=== PATIENT | male | born 1955 | race Caucasian/White ===

== ENCOUNTER 2016-11-27 13:57 | Emergency (ER) | payer MEDICAID ==
[~2016-11-27] VITALS: Ht 180.3 cm; Wt 89.0 kg
[~2016-11-27 13:57] MED LIST: ASPI-496 PO; ASPI-614 PO; BENA20TA2 PO; BENA20TA61 PO; CLON1TAB23 PO; CLOP75TA PO; CLOP75TA22 PO; CYCL-259 PO; ESOM40CA PO; FLUT1DIS IH; HYDR12.58 PO; HYDR25SU21 PR; HYDR25TA6 PO; IBUP800T PO; LOSA1TAB17 PO; METO-93 PO; METO50TA82 PO; MIRT45TA PO; SIMV20TA3 PO; SIMV40TA3 PO; TADA5TAB2 PO; TRAZ100T15 PO; TRAZ50TA18 PO; ZOLP-413 PO
[2016-11-27] MEDS ORDERED: MIRT7.5T8 PO (14:15)
[2016-11-27] MEDS ORDERED: ONDA4TAB10 PO (14:15)
[2016-11-27] MEDS ORDERED: RIFA200T3 PO (14:15)
[2016-11-27] MEDS ORDERED: METH5TAB2 PO (14:15)
[2016-11-27] MEDS ORDERED: METO25TA35 PO (14:15)
[2016-11-27] MEDS ORDERED: RISP0.253 PO (14:15)
[2016-11-27] MEDS ORDERED: SODIUM CHLORIDE FLUSH 10ML SYR IVF ONE (14:30)
[2016-11-27] MEDS ORDERED: SODIUM CHLORIDE 0.9% 1,000ML IVBOLUS ONE ×2 (14:30→16:00)
[2016-11-27] MEDS ORDERED: ONDANSETRON 2MG/ML, 2ML IVPush ONE (14:30)
[2016-11-27] MEDS ORDERED: ONDANSETRON 2MG/ML, 2ML ONE (14:56)
[2016-11-27 15:13] LABS: BLOOD UREA NITROGEN 34 mg/dL (7-18)
[2016-11-27 15:21] LABS: ASPARTATE AMINO TRANSFERASE 144 U/L (15-37)
[2016-11-27 15:28] LABS: ACETAMINOPHEN < 2 mcg/mL (10-30); IS PT STATUS REG ER OR PRE ER? YES
[2016-11-27 15:41] VITALS: BP 141/52
[2016-11-27 16:26] LABS: DAU SCREEN DISCLAIMER
[2016-11-27 16:33] LABS: PATH.CAST-FLAG NOT PRESENT; SPERM-FLAG NOT PRESENT; SRC-FLAG NOT PRESENT; XTAL-FLAG NOT PRESENT; YLC-FLAG NOT PRESENT
== END 2016-11-27 18:25 | disposition home or self-care (01) ==
LOC: ED 14:12
DX: F15.10 Other stimulant abuse, uncomplicated (principal); E86.0 Dehydration; I12.9 Hypertensive chronic kidney disease with stage 1 through stage 4 chronic kidney disease, or unspecified chronic kidney disease; N18.9 Chronic kidney disease, unspecified; I25.2 Old myocardial infarction; F11.10 Opioid abuse, uncomplicated
CPT/HCPCS: 36415; 70450; 80053; 80307; 80329; 81001; 82010; 82140; 82800; 83605; 84443; 84484; 85025; 85610; 85730; 93005; 96361; 96374; 99285; J2405; J7030; G0480

== ENCOUNTER 2017-03-01 22:05 | Inpatient (IN) | payer MEDICAID ==
[~2017-03-01] VITALS: Ht 180.3 cm; Wt 88.8 kg
[~2017-03-01 22:05] MED LIST changes: +METH5TAB2 PO; +METO25TA35 PO; +MIRT7.5T8 PO; +ONDA4TAB10 PO; +RIFA200T3 PO; +RISP0.253 PO
[2017-03-01] MEDS ORDERED: NALOXONE 0.4 MG/ML, 1ML ONE (22:14)
[2017-03-01] MEDS ORDERED: NALOXONE 0.4 MG/ML, 1ML IVPush ONE (22:30)
[2017-03-01] MEDS ORDERED: SODIUM CHLORIDE FLUSH 10ML SYR IVF ONE ×2 (22:30→23:30)
[2017-03-01] MEDS ORDERED: METO50TA82 PO (22:45)
[2017-03-01 23:01] LABS: BLOOD UREA NITROGEN 37 mg/dL (7-18)
[2017-03-01] MEDS ORDERED: SODIUM CHLORIDE 0.9% 1,000ML IVBOLUS ONE (23:30)
[2017-03-02] MEDS ORDERED: LOSA25TA5 PO (01:18)
[2017-03-02] MEDS ORDERED: CLON0.1T PO (01:18)
[2017-03-02] MEDS ORDERED: RISP0.253 PO (01:18)
[2017-03-02] MEDS ORDERED: SODIUM CHLORIDE 0.9% 1,000 ML IV ONE (01:39)
[2017-03-02] MEDS ORDERED: ACETAMINOPHEN 325 MG TABLET PO PRN (02:00)
[2017-03-02] MEDS ORDERED: ONDANSETRON 2MG/ML, 2ML IVPush PRN ×2 (02:00)
[2017-03-02] MEDS: HEPARIN 5,000 UNITS/ML, 1ML SQ SCH ×3 (04:03→18:15)
[2017-03-02] MEDS: SODIUM CHLORIDE 0.9% 1,000 ML IV SCH ×3 (04:03→17:29)
[2017-03-02 04:47] VITALS: BP 119/61
[2017-03-02 08:00] VITALS: BP 91/56
[2017-03-02] MEDS ORDERED: METOPROLOL TARTRATE 50 MG TABLET PO SCH (09:00)
[2017-03-02 11:20] LABS: BLOOD UREA NITROGEN 30 mg/dL (7-18)
[2017-03-02 14:30] VITALS: BP 119/70
[2017-03-02] MEDS: HYDROcodone/APAP 5/325 TABLET PO PRN (17:28)
[2017-03-02 18:42] VITALS: BP 117/65
[2017-03-03] MEDS: SODIUM CHLORIDE 0.9% 1,000 ML IV SCH ×2 (00:19→06:28)
[2017-03-03] MEDS: HEPARIN 5,000 UNITS/ML, 1ML SQ SCH ×3 (01:27→17:51)
[2017-03-03 01:45] VITALS: BP 124/60
[2017-03-03 06:03] LABS: BLOOD UREA NITROGEN 26 mg/dL (7-18)
[2017-03-03 08:00] VITALS: BP 106/61
[2017-03-03] MEDS: METHADONE 5 MG TABLET PO SCH ×2 (11:54→17:50)
[2017-03-03 14:38] VITALS: BP 110/68
[2017-03-03 18:41] VITALS: BP 146/79
[2017-03-03] MEDS: HYDROcodone/APAP 5/325 TABLET PO PRN (21:15)
[2017-03-03] MEDS: TRAZODONE 50MG TABLET PO PRN (21:45)
[2017-03-04] MEDS: METHADONE 5 MG TABLET PO SCH ×5 (00:01→23:31)
[2017-03-04 00:10] VITALS: BP 129/74
[2017-03-04] MEDS: LACTULOSE 10 GM/15 ML UDC PO SCH ×3 (00:45→20:03)
[2017-03-04] MEDS: NICOTINE 14MG/24 HR PATCH.TD24 TD SCH ×2 (00:45→23:31)
[2017-03-04] MEDS ORDERED: SODIUM CHLORIDE 0.9% 1,000 ML IV SCH (01:53)
[2017-03-04] MEDS ORDERED: IPRATROPIUM 0.5 MG/2.5 ML INHA ONE (02:30)
[2017-03-04] MEDS: HYDROcodone/APAP 5/325 TABLET PO PRN ×2 (06:01→20:03)
[2017-03-04] MEDS: HEPARIN 5,000 UNITS/ML, 1ML SQ SCH ×3 (06:01→20:03)
[2017-03-04 08:21] VITALS: BP 137/83
[2017-03-04 13:08] LABS: BLOOD UREA NITROGEN 15 mg/dL (7-18)
[2017-03-04 18:55] VITALS: BP 167/81
[2017-03-04] MEDS: TRAZODONE 50MG TABLET PO PRN (20:03)
[2017-03-05 01:04] VITALS: BP 164/83
[2017-03-05] MEDS: HYDROcodone/APAP 5/325 TABLET PO PRN ×2 (02:01→20:14)
[2017-03-05] MEDS: HEPARIN 5,000 UNITS/ML, 1ML SQ SCH ×3 (05:52→20:15)
[2017-03-05] MEDS: METHADONE 5 MG TABLET PO SCH ×4 (05:53→23:48)
[2017-03-05 08:30] VITALS: BP 155/89
[2017-03-05] MEDS: LACTULOSE 10 GM/15 ML UDC PO SCH ×2 (09:00→20:15)
[2017-03-05] MEDS ORDERED: LOSARTAN 50MG TABLET PO SCH (09:00)
[2017-03-05] MEDS ORDERED: hydrALAzine 20 MG/ML, 1ML IV PRN (14:00)
[2017-03-05 14:30] VITALS: BP 153/77
[2017-03-05] MEDS ORDERED: ONDANSETRON ODT 4 MG PO PRN (14:30)
[2017-03-05] MEDS ORDERED: PROMETHAZINE 12.5 MG SUPP PR PRN (14:30)
[2017-03-05] MEDS ORDERED: RIFA550T PO (14:57)
[2017-03-05 20:07] VITALS: BP 160/77
[2017-03-05] MEDS: TRAZODONE 50MG TABLET PO PRN (20:14)
[2017-03-05] MEDS: LOSARTAN 50MG TABLET PO SCH (20:15)
[2017-03-05] MEDS: NICOTINE 14MG/24 HR PATCH.TD24 TD SCH (23:47)
[2017-03-06 00:27] VITALS: BP 168/89
[2017-03-06] MEDS: HYDROcodone/APAP 5/325 TABLET PO PRN (02:26)
[2017-03-06] MEDS: METHADONE 5 MG TABLET PO SCH ×2 (06:11→11:21)
[2017-03-06] MEDS: HEPARIN 5,000 UNITS/ML, 1ML SQ SCH (06:12)
[2017-03-06 07:14] VITALS: BP 157/81
[2017-03-06] MEDS: LACTULOSE 10 GM/15 ML UDC PO SCH (08:19)
[2017-03-06] MEDS: LOSARTAN 50MG TABLET PO SCH (08:20)
== END 2017-03-06 13:25 | disposition home or self-care (01) | DRG 917 ==
LOC: ED 23:59 → EDIP 03-02 01:39 → SUATTDRO 03-02 01:53 → 4WST 03-02 03:03
PROVIDERS: ADMIT Internal Medicine; ATTEND Internal Medicine
DX: T40.3X2A Poisoning by methadone, intentional self-harm, initial encounter (principal); G92 Toxic encephalopathy; J96.21 Acute and chronic respiratory failure with hypoxia; N17.0 Acute kidney failure with tubular necrosis; E44.1 Mild protein-calorie malnutrition; E87.1 Hypo-osmolality and hyponatremia; F11.20 Opioid dependence, uncomplicated; I10 Essential (primary) hypertension; J44.9 Chronic obstructive pulmonary disease, unspecified; F17.210 Nicotine dependence, cigarettes, uncomplicated; I95.9 Hypotension, unspecified; D53.9 Nutritional anemia, unspecified; G89.29 Other chronic pain; E78.5 Hyperlipidemia, unspecified; Z59.0 Homelessness; Z68.27 Body mass index [BMI] 27.0-27.9, adult; Z71.6 Tobacco abuse counseling; Z79.899 Other long term (current) drug therapy
CPT/HCPCS: 36415; 71010; 80048; 80307; 82040; 82607; 82746; 83735; 84100; 84300; 84443; 85025; 93005; 96361; 96374; J1644; J2310; J7030

== ENCOUNTER 2018-06-25 18:24 | Emergency (ER) | payer MEDICAID ==
[~2018-06-25] VITALS: Ht 180.3 cm; Wt 78.5 kg
[~2018-06-25 18:24] MED LIST changes: -BENA20TA2 PO; +BENA20TA4 PO; +CLON0.1T PO; -CLOP75TA22 PO; +CLOP75TA52 PO; +IBUP-1223 PO; -IBUP800T PO; -LOSA1TAB17 PO; +LOSA1TAB22 PO; +LOSA25TA6 PO; -RIFA200T3 PO; +RIFA200T5 PO; +RIFA550T4 PO; +TRAZ-136 PO; +TRAZ-137 PO; -TRAZ100T15 PO; -TRAZ50TA18 PO
[2018-06-25 19:01] LABS: BASOPHILS # (AUTO) 0.01 x10^3/uL (0-0.1); BASOPHILS % (AUTO) 0 % (0-1); EOSINOPHILS % (AUTO) 0 % (1-7); LYMPHOCYTES # (AUTO) 0.44 x10^3/uL (1-3.4); LYMPHOCYTES % (AUTO) 4 % (22-44); MD NO; MEAN CORPUSCULAR HEMOGLOBIN 33.6 pg (27.5-34.5); MEAN CORPUSCULAR HGB CONC 34.3 g/dL (33.2-36.2); MEAN PLATELET VOLUME 8.6 fL (7.4-10.4); MONOCYTES # (AUTO) 0.69 x10^3/uL (0.2-0.8); MONOCYTES % (AUTO) 6 % (2-9); NEUTROPHILS # (AUTO) 9.65 x10^3/uL (1.8-6.8); NEUTROPHILS % (AUTO) 89 % (42-75); PLATELET COUNT 151 x10^3/uL (130-400); RED BLOOD COUNT 4.13 x10^6/uL (4.38-5.82); RED CELL DISTRIBUTION WIDTH 14.2 % (9.4-14.8)
[2018-06-25 19:05] LABS: ALBUMIN 4.4 g/dL (3.4-5.0); ANION GAP 15 mmol/L (5-15); CALCIUM 9.2 mg/dL (8.5-10.1); CHLORIDE 108 mmol/L (98-107); CREATININE 2.67 mg/dL (0.7-1.3)
[2018-06-25 19:13] LABS: ALANINE AMINOTRANSFERASE 88 U/L (12-78); ALKALINE PHOSPHATASE 172 U/L (45-117); TOTAL PROTEIN 8.5 g/dL (6.4-8.2)
[2018-06-25] MEDS ORDERED: SODIUM CHLORIDE 0.9% 1,000ML IVBOLUS ONE (19:30)
[2018-06-25 20:44] VITALS: BP 118/76
== END 2018-06-25 21:51 | disposition home or self-care (01) ==
LOC: ED 21:45
DX: K59.00 Constipation, unspecified (principal); I12.9 Hypertensive chronic kidney disease with stage 1 through stage 4 chronic kidney disease, or unspecified chronic kidney disease; N18.9 Chronic kidney disease, unspecified; I25.2 Old myocardial infarction; F17.200 Nicotine dependence, unspecified, uncomplicated; Z85.038 Personal history of other malignant neoplasm of large intestine
CPT/HCPCS: 36415; 74176; 76700; 80053; 82140; 83690; 85025; 96360; 99285; J7030

== ENCOUNTER 2018-06-26 00:27 | Emergency (ER) | payer MEDICAID ==
[~2018-06-26] VITALS: Ht 172.7 cm; Wt 70.0 kg
[2018-06-26 00:33] VITALS: BP 146/95
== END 2018-06-26 00:54 ==
LOC: ED 00:52
DX: F10.10 Alcohol abuse, uncomplicated (principal); Z53.21 Procedure and treatment not carried out due to patient leaving prior to being seen by health care provider

== ENCOUNTER 2018-12-25 14:51 | Emergency (ER) | payer MEDICAID ==
[~2018-12-25] VITALS: Ht 180.3 cm; Wt 76.0 kg
[~2018-12-25 14:51] MED LIST changes: -BENA20TA4 PO; +BENA20TA54 PO; -CLON0.1T PO; +CLON0.1T22 PO; -HYDR12.58 PO; +HYDROCHLOROTH12.5 MG PO; +LOSA25TA25 PO; -LOSA25TA6 PO; -TRAZ-136 PO; +TRAZ50TA66 PO
[2018-12-25 14:57] VITALS: BP 140/81
[2018-12-25] MEDS ORDERED: LIDOCAINE-MPF 1%, 5ML INFIL ONE (15:00)
[2018-12-25] MEDS ORDERED: LIDOCAINE-MPF 1%, 5ML ONE (15:02)
[2018-12-25] MEDS ORDERED: DIPH,PERTUSS(ACELL),TET VAC/PF 0.5 ML IM-VACC ONE ×2 (15:23→15:30)
[2018-12-25] MEDS ORDERED: BACITRACIN ZINC OINT 500U/GM, 0.9 GM ONE (16:01)
== END 2018-12-25 16:08 | disposition home or self-care (01) ==
LOC: ED 16:02
DX: S61.412A Laceration without foreign body of left hand, initial encounter (principal); I10 Essential (primary) hypertension; I25.2 Old myocardial infarction; F17.200 Nicotine dependence, unspecified, uncomplicated; W01.0XXA Fall on same level from slipping, tripping and stumbling without subsequent striking against object, initial encounter; Y93.89 Activity, other specified; Y92.89 Other specified places as the place of occurrence of the external cause; Y99.8 Other external cause status
CPT/HCPCS: 12002; 90471; 90715

== ENCOUNTER 2019-01-22 10:50 | Emergency (ER) | payer MEDICAID ==
[~2019-01-22] VITALS: Ht 180.3 cm; Wt 75.6 kg
[2019-01-22 10:58] VITALS: BP 137/79
--- NOTE | 2019-01-22 11:09 | NUR ---
PT'S HERE FOR SUTURE REMOVAL TO LEFT PALM FROM >1 MONTH AGO. NO ANY OTHER SYMPTOMS. PT'S AOX4. RESPS EVEN AND UNLABORED.
[2019-01-22] MEDS ORDERED: BACITRACIN ZINC OINT 500U/GM, 0.9 GM ONE (11:12)
--- NOTE | 2019-01-22 11:21 | NUR ---
PT GIVEN DC INSTRUCTIONS. PT AMB TO DC WITH STEADY GAIT. NO ACUTE DISTRESS AT DC.
== END 2019-01-22 11:22 | disposition home or self-care (01) ==
LOC: ED 11:20
DX: S61.412D Laceration without foreign body of left hand, subsequent encounter (principal); I10 Essential (primary) hypertension; F17.200 Nicotine dependence, unspecified, uncomplicated; X58.XXXD Exposure to other specified factors, subsequent encounter
CPT/HCPCS: 99283

== ENCOUNTER 2019-02-08 12:32 | Inpatient (IN) | payer MEDICAID ==
[~2019-02-08] VITALS: Ht 180.3 cm; Wt 78.0 kg
--- NOTE | 2019-02-08 13:01 | NUR ---
pt to room from the lobby in a wheelchair. supplemntal o2 provided via nc. changed into a gown, and is awaiting an MD to assess.
--- NOTE | 2019-02-08 13:14 | NUR ---
raleigh (rn) is assuming care of this pt at this time. sbar report was exchanged at the bedside.
--- NOTE | 2019-02-08 13:15 | NUR ---
REPORT FROM JADEN MAI, ASSUME CARE OF PT AT THIS TIME. PT RESTING IN ROOM, NAD, AWAITING LAB RESULTS.
[2019-02-08] MEDS ORDERED: RIFAXIMIN 550 MG TABLET PO ONE (13:30)
[2019-02-08 13:37] LABS: BASOPHILS # (AUTO) 0.02 x10^3/uL (0-0.1); BASOPHILS % (AUTO) 0 % (0-1); EOSINOPHILS # (AUTO) 0.12 x10^3/uL (0-0.4); EOSINOPHILS % (AUTO) 2 % (1-7); LYMPHOCYTES # (AUTO) 0.76 x10^3/uL (1-3.4); LYMPHOCYTES % (AUTO) 12 % (22-44); MD NO; MEAN CORPUSCULAR HEMOGLOBIN 32.1 pg (27.5-34.5); MEAN CORPUSCULAR HGB CONC 32.9 g/dL (33.2-36.2); MEAN CORPUSCULAR VOLUME 97.6 fL (81-97); MEAN PLATELET VOLUME 8.6 fL (7.4-10.4); MONOCYTES # (AUTO) 0.46 x10^3/uL (0.2-0.8); MONOCYTES % (AUTO) 7 % (2-9); NEUTROPHILS # (AUTO) 4.94 x10^3/uL (1.8-6.8); NEUTROPHILS % (AUTO) 78 % (42-75); PLATELET COUNT 130 x10^3/uL (130-400); RED BLOOD COUNT 3.81 x10^6/uL (4.38-5.82); RED CELL DISTRIBUTION WIDTH 13.7 % (9.4-14.8)
[2019-02-08 13:45] LABS: ALANINE AMINOTRANSFERASE 18 U/L (12-78); ALBUMIN 3.4 g/dL (3.4-5.0); ANION GAP 9 mmol/L (5-15); CALCIUM 8.3 mg/dL (8.5-10.1); CHLORIDE 103 mmol/L (98-107); CREATININE 2.92 mg/dL (0.7-1.3)
[2019-02-08 13:47] LABS: ALKALINE PHOSPHATASE 108 U/L (45-117); BILIRUBIN,TOTAL 0.3 mg/dL (0.2-1.0); TOTAL PROTEIN 7.3 g/dL (6.4-8.2)
[2019-02-08] MEDS ORDERED: SODIUM CHLORIDE 0.9% 1,000ML IVBOLUS ONE (14:00)
[2019-02-08] MEDS ORDERED: CLON1TAB23 PO (14:10)
[2019-02-08] MEDS ORDERED: METH10TA2 PO (14:10)
--- NOTE | 2019-02-08 14:56 | NUR ---
PT BACK FROM CT. IV PLACED, NS BOLUS INFUSING. [facility] IN TO SEE PT.
[2019-02-08] MEDS ORDERED: DOCUSATE 100 MG CAPSULE PO PRN (15:30)
[2019-02-08] MEDS ORDERED: hydrALAzine 20 MG/ML, 1ML IVPush PRN (15:30)
[2019-02-08] MEDS ORDERED: ONDANSETRON ODT 4 MG PO PRN (15:30)
[2019-02-08] MEDS ORDERED: ONDANSETRON 2MG/ML, 2ML IVPush PRN (15:30)
[2019-02-08] MEDS ORDERED: BISACODYL 10 MG SUPP PR PRN (15:30)
[2019-02-08] MEDS ORDERED: ACETAMINOPHEN 325 MG TABLET PO PRN (15:30)
[2019-02-08] MEDS ORDERED: LABETALOL 5MG/ML, 20ML IVPush PRN (15:30)
[2019-02-08] MEDS ORDERED: POLYETHYLENE GLYCOL 17 GM PACKET PO PRN (15:30)
--- NOTE | 2019-02-08 15:46 | NUR ---
REPORT TO CHAIM MAI, PT READY FOR TRANSPORT TO FLOOR
[2019-02-08 16:08] VITALS: BP 127/83
[2019-02-08] MEDS: METHADONE 40 MG TABLET.SOL PO SCH (16:44)
[2019-02-08] MEDS: SODIUM CHLORIDE 0.9% 1,000 ML IV SCH ×2 (16:59→23:42)
[2019-02-08] MEDS: NICOTINE 7 MG/24 HR PATCH.TD24 TD SCH (18:02)
[2019-02-08] MEDS: HEPARIN 5,000 UNITS/ML, 1ML SQ SCH ×2 (18:02→23:30)
[2019-02-08] MEDS: RIFAXIMIN 550 MG TABLET PO SCH (20:59)
[2019-02-08] MEDS: BUDESONIDE 0.5 MG/2 ML INHA NPPB SCH (21:00)
[2019-02-08] MEDS ORDERED: SIMVASTATIN 20 MG TABLET PO SCH (21:00)
[2019-02-08 21:06] VITALS: BP 116/78
[2019-02-08] MEDS: ALBUTEROL SULFATE 2.5 MG/3 ML HHN SCH (21:35)
[2019-02-09 03:04] VITALS: BP 95/63
[2019-02-09 03:29] LABS: MICROSCOPIC NOT IND
[2019-02-09 03:41] LABS: AMPHETAMINE SCREEN, URINE Negative (Negative); BARBITURATE SCREEN, URINE Negative (Negative); BENZODIAZEPINE SCREEN, URINE Negative (Negative); CANNABINOID SCREEN, URINE Negative (Negative); COCAINE SCREEN, URINE Negative (Negative); METHADONE SCREEN, URINE Positive (Negative); OPIATE SCREEN, URINE Positive (Negative)
[2019-02-09 03:53] LABS: CULTURE INDICATED? NO
[2019-02-09 05:17] LABS: BASOPHILS # (AUTO) 0.02 x10^3/uL (0-0.1); BASOPHILS % (AUTO) 1 % (0-1); EOSINOPHILS # (AUTO) 0.34 x10^3/uL (0-0.4); EOSINOPHILS % (AUTO) 8 % (1-7); LYMPHOCYTES # (AUTO) 1.05 x10^3/uL (1-3.4); LYMPHOCYTES % (AUTO) 23 % (22-44); MD NO; MEAN CORPUSCULAR HEMOGLOBIN 32.6 pg (27.5-34.5); MEAN CORPUSCULAR HGB CONC 33.1 g/dL (33.2-36.2); MEAN CORPUSCULAR VOLUME 98.7 fL (81-97); MEAN PLATELET VOLUME 8.5 fL (7.4-10.4); MONOCYTES # (AUTO) 0.41 x10^3/uL (0.2-0.8); MONOCYTES % (AUTO) 9 % (2-9); NEUTROPHILS # (AUTO) 2.72 x10^3/uL (1.8-6.8); NEUTROPHILS % (AUTO) 60 % (42-75); PLATELET COUNT 116 x10^3/uL (130-400); RED BLOOD COUNT 3.47 x10^6/uL (4.38-5.82); RED CELL DISTRIBUTION WIDTH 13.7 % (9.4-14.8)
[2019-02-09 05:27] LABS: ALBUMIN 2.6 g/dL (3.4-5.0); ANION GAP 5 mmol/L (5-15); CALCIUM 7.7 mg/dL (8.5-10.1); CHLORIDE 111 mmol/L (98-107)
[2019-02-09 05:41] LABS: ALANINE AMINOTRANSFERASE 16 U/L (12-78); ALKALINE PHOSPHATASE 88 U/L (45-117); BILIRUBIN,TOTAL 0.4 mg/dL (0.2-1.0); CREATININE 1.78 mg/dL (0.7-1.3); THYROID STIMULATING HORMONE 0.455 mIU/L (0.358-3.740); TOTAL PROTEIN 5.8 g/dL (6.4-8.2)
[2019-02-09] MEDS ORDERED: ASPIRIN 81 MG TABLET EC PO SCH (06:00)
[2019-02-09] MEDS: SODIUM CHLORIDE 0.9% 1,000 ML IV SCH (07:10)
[2019-02-09] MEDS: BUDESONIDE 0.5 MG/2 ML INHA NPPB SCH (07:50)
[2019-02-09] MEDS: ALBUTEROL SULFATE 2.5 MG/3 ML HHN SCH (07:50)
[2019-02-09 08:00] VITALS: BP 98/57
[2019-02-09] MEDS: RIFAXIMIN 550 MG TABLET PO SCH (08:29)
[2019-02-09] MEDS: METHADONE 40 MG TABLET.SOL PO SCH (08:29)
[2019-02-09] MEDS: HEPARIN 5,000 UNITS/ML, 1ML SQ SCH ×2 (08:29→15:30)
[2019-02-09] MEDS ORDERED: ALBUTEROL SULFATE 2.5 MG/3 ML HHN SCH (15:00)
[2019-02-09] MEDS ORDERED: RIFA550T4 PO (15:17)
[2019-02-09 15:42] VITALS: BP 113/69
[2019-02-09] MEDS: NICOTINE 7 MG/24 HR PATCH.TD24 TD SCH (15:43)
== END 2019-02-09 17:57 | disposition home or self-care (01) | DRG 682 ==
LOC: ED 13:56 → 3NE 15:14
PROVIDERS: ADMIT Internal Medicine; ATTEND Internal Medicine
DX: N17.9 Acute kidney failure, unspecified (principal); G92 Toxic encephalopathy; F11.20 Opioid dependence, uncomplicated; E86.0 Dehydration; F17.210 Nicotine dependence, cigarettes, uncomplicated; F22 Delusional disorders; F32.9 Major depressive disorder, single episode, unspecified; J44.9 Chronic obstructive pulmonary disease, unspecified; K59.09 Other constipation; K74.60 Unspecified cirrhosis of liver; N18.9 Chronic kidney disease, unspecified; G89.29 Other chronic pain; I12.9 Hypertensive chronic kidney disease with stage 1 through stage 4 chronic kidney disease, or unspecified chronic kidney disease; I25.10 Atherosclerotic heart disease of native coronary artery without angina pectoris; I25.2 Old myocardial infarction; Z79.899 Other long term (current) drug therapy; Z82.49 Family history of ischemic heart disease and other diseases of the circulatory system; Z85.038 Personal history of other malignant neoplasm of large intestine; Z95.5 Presence of coronary angioplasty implant and graft
CPT/HCPCS: 36415; 99285; J7613; J7626; 70450; 80053; 80307; 81003; 82140; 83690; 83735; 84100; 84443; 85025; 94640; G0378; J1644; J7030

== ENCOUNTER 2019-02-15 13:36 | Emergency (ER) | payer MEDICAID ==
[~2019-02-15] VITALS: Ht 180.3 cm; Wt 77.8 kg
[~2019-02-15 13:36] MED LIST changes: +METH10TA2 PO
--- NOTE | 2019-02-15 13:45 | NUR ---
PATIENT PRESENTS TO ED TODAY FOR ABD PAIN, PATIENT REPORTS HAVING AN "ABSCESS IN MY STOMACH AFTER USING HEROIN", LAST USE 02/13/19. 78% RA UPON ARRIVAL TO ROOM 19. SUPPLEMENTAL O2 APPLIED, NOW 93% 3L NC. SHEET LAYER ON PATIENT. HX OF COPD AND COLON CA. DROWSY, A+OX4, RESPONDS APPROPRIATELY TO VOICE, REPORTS TAKING METHADONE, PA STUDENT AT BEDSIDE, AWAITING MD ORDERS, CALL LIGHT WITHIN REACH.
--- NOTE | 2019-02-15 14:47 | NUR ---
Task RN at bedside. vss. Resting w/ eyes closed, denies pain, med rec complete.
--- NOTE | 2019-02-15 15:34 | NUR ---
VS UPDATED IN CHART, FAMILY MEMBER AT BEDSIDE, PATIENT REQUESTING TO LEAVE. MD AWARE. AWAITING FURTHER ORDERS.
--- NOTE | 2019-02-15 15:49 | NUR ---
Madina de oliveira in ED - 02/15/19 at 1551 by BRADY VS UPDATED IN CHART, PATIENT SITTING IN [place] [facility], AWAITING CT RESULTS.
--- NOTE | 2019-02-15 16:02 | NUR ---
Patient/Caregiver given discharge instructions and they have confirmed that they understand the instructions. Patient ambulatory with steady gait to DC desk, family driving patient home for safe DC.
[2019-02-15 16:03] VITALS: BP 105/56
== END 2019-02-15 16:05 | disposition home or self-care (01) ==
LOC: ED 14:46
DX: L02.211 Cutaneous abscess of abdominal wall (principal)
CPT/HCPCS: 99283; 99284

== ENCOUNTER 2019-02-18 06:21 | Emergency (ER) | payer MEDICAID ==
[~2019-02-18] VITALS: Ht 180.3 cm; Wt 78.5 kg
--- NOTE | 2019-02-18 06:49 | NUR ---
BEDSIDE REPORT FROM ELISA RN, PT RESTING IN [facility] ON 2L NC. NO NEEDS AT THIS TIME.
--- NOTE | 2019-02-18 06:50 | NUR ---
report given to nabeel barnes
[2019-02-18 07:09] VITALS: BP 88/51
--- NOTE | 2019-02-18 07:20 | NUR ---
PT BP 88/56, NOTIFIED, NOT ALTERED FROM BASELINE, HR 56, NO S/SXS OF INFECTION. PT STATES HE DOES NOT FEEL DIZZY OR LIGHTHEADED.
== END 2019-02-18 07:23 | disposition home or self-care (01) ==
LOC: ED 07:17
DX: L98.9 Disorder of the skin and subcutaneous tissue, unspecified (principal); L02.211 Cutaneous abscess of abdominal wall; I10 Essential (primary) hypertension; I25.2 Old myocardial infarction; Z85.038 Personal history of other malignant neoplasm of large intestine
CPT/HCPCS: 99281

== ENCOUNTER 2019-03-17 17:50 | Emergency (ER) | payer MEDICAID ==
[~2019-03-17] VITALS: Ht 180.3 cm; Wt 74.9 kg
[2019-03-17 18:56] VITALS: BP 127/80
== END 2019-03-17 18:56 | disposition home or self-care (01) ==
LOC: ED 18:15
DX: F41.1 Generalized anxiety disorder (principal); F11.10 Opioid abuse, uncomplicated; I10 Essential (primary) hypertension; I25.2 Old myocardial infarction; Z72.9 Problem related to lifestyle, unspecified; Z75.9 Unspecified problem related to medical facilities and other health care; Z91.14 Patient's other noncompliance with medication regimen; Z63.8 Other specified problems related to primary support group
CPT/HCPCS: 99284

== ENCOUNTER 2020-03-29 15:16 | Inpatient (IN) | payer MEDICAID ==
[~2020-03-29] VITALS: Ht 180.3 cm; Wt 80.6 kg
[~2020-03-29 15:16] MED LIST changes: +SIMV20TA19 PO; -SIMV20TA3 PO; +SIMV40TA20 PO; -SIMV40TA3 PO; -TRAZ-137 PO; +TRAZ-175 PO
--- NOTE | 2020-03-29 15:56 | NUR ---
PT BIB [facility] AFTER PT WAS FOUND LEANING AGAINST BUILDING BY BYSTANDERS. PER [facility] PT WAS DISORIENTED ON ARRIVAL WITH BP OF 67/52. 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 PT ADMITS TO WALKING AROUND WITH NO WATER FOR ABOUT 30-48 HOURS. PT IS ON METHADONE AND TAKES 60 MG PER DAY. PT ASKING FOR PAIN MEDICATION FOR BACK PAIN.
[2020-03-29] MEDS ORDERED: SODIUM CHLORIDE 0.9% 1,000ML IVBOLUS ONE ×2 (16:00)
[2020-03-29] MEDS ORDERED: SODIUM CHLORIDE FLUSH 10ML SYR IVF ONE (16:00)
[2020-03-29] MEDS ORDERED: METH40TA3 PO (16:11)
--- NOTE | 2020-03-29 16:14 | NUR ---
3RD LITER INFUSED AND PT STILL HAS REFRACTORY LOW BP. DR. HIGGINS AT BEDSIDE.
[2020-03-29 16:17] LABS: BASOPHILS # (AUTO) 0.02 x10^3/uL (0-0.1); BASOPHILS % (AUTO) 0 % (0-1); EOSINOPHILS # (AUTO) 0.28 x10^3/uL (0-0.4); EOSINOPHILS % (AUTO) 5 % (1-7); LYMPHOCYTES # (AUTO) 1.14 x10^3/uL (1-3.4); LYMPHOCYTES % (AUTO) 20 % (22-44); MD NO; MEAN CORPUSCULAR HEMOGLOBIN 32.8 pg (27.5-34.5); MEAN CORPUSCULAR HGB CONC 33.2 g/dL (33.2-36.2); MEAN CORPUSCULAR VOLUME 98.6 fL (81-97); MEAN PLATELET VOLUME 8.8 fL (7.4-10.4); MONOCYTES # (AUTO) 0.46 x10^3/uL (0.2-0.8); MONOCYTES % (AUTO) 8 % (2-9); NEUTROPHILS # (AUTO) 3.74 x10^3/uL (1.8-6.8); NEUTROPHILS % (AUTO) 66 % (42-75); PLATELET COUNT 126 x10^3/uL (130-400); RED BLOOD COUNT 3.71 x10^6/uL (4.38-5.82); RED CELL DISTRIBUTION WIDTH 14.2 % (9.4-14.8)
[2020-03-29 16:20] LABS: INTERNATIONAL NORMALIZED RATIO 1.02 (0.93-1.1); PROTHROMBIN TIME 10.5 Seconds (9.6-11.5)
[2020-03-29 16:22] LABS: ALANINE AMINOTRANSFERASE 19 U/L (12-78); ALBUMIN 3.3 g/dL (3.4-5.0); ANION GAP 9 mmol/L (5-15); CALCIUM 8.1 mg/dL (8.5-10.1); CHLORIDE 113 mmol/L (98-107); CREATININE 2.62 mg/dL (0.7-1.3)
[2020-03-29 16:26] LABS: ALKALINE PHOSPHATASE 107 U/L (45-117); BILIRUBIN,TOTAL 0.4 mg/dL (0.2-1.0); TOTAL PROTEIN 6.7 g/dL (6.4-8.2); TROPONIN I < 0.015 ng/mL (0.000-0.045)
--- NOTE | 2020-03-29 16:54 | NUR ---
PT REFUSED TO HAVE STRAIGHT CATH DONE. PT ABLE TO SPEAK TO ON THE PHONE AND WAS PERSISTENTLY ASKING IF HIS KLONOPIN WAS AT HOME. PT REPORTS IT WAS IN HIS PANT POCKET BUT IS NOT NOW. PT ARRIVED WITH PANTS, LENS MISSING FROM GLASSES, SHOES, CUTTING TABLE OPERATOR FIRST, CIGARETTES, AND SHIRT.
--- NOTE | 2020-03-29 16:58 | NUR ---
LAST BP 85/46. DR. COOPER AWARE. PT TO GET 250 MLS OF NS PER HOUR AFTER 3 LITER BOLUS WAS INFUSED AND MD EVALUATED LAB RESULTS.
[2020-03-29] MEDS ORDERED: SODIUM CHLORIDE 0.9% 1,000 ML IV ONE (17:00)
--- NOTE | 2020-03-29 17:06 | NUR ---
[facility] CALLED PER PT REQUEST TO HAVE THEM SEARCH FOR HIS MISSING GLASS LENSE AND KLONOPIN.
--- NOTE | 2020-03-29 17:14 | NUR ---
MEAL TRAY ORDERED. PK PER DR. COOPER.
[2020-03-29] MEDS: SODIUM CHLORIDE 0.9% 1,000 ML IV SCH ×2 (17:27→22:20)
[2020-03-29] MEDS ORDERED: ONDANSETRON ODT 4 MG PO PRN (17:30)
[2020-03-29] MEDS ORDERED: morphine SULFATE 10 MG/ML, 1ML IVPush PRN (17:30)
[2020-03-29] MEDS ORDERED: BISACODYL 10 MG SUPP PR PRN (17:30)
[2020-03-29] MEDS ORDERED: POLYETHYLENE GLYCOL 17 GM PACKET PO PRN (17:30)
[2020-03-29] MEDS ORDERED: ONDANSETRON 2MG/ML, 2ML IVPush PRN (17:30)
[2020-03-29] MEDS ORDERED: DOCUSATE 100 MG CAPSULE PO PRN (17:30)
[2020-03-29] MEDS ORDERED: ACETAMINOPHEN 325 MG TABLET PO PRN (17:30)
[2020-03-29] MEDS ORDERED: hydrALAzine 20 MG/ML, 1ML IVPush PRN (17:30)
[2020-03-29] MEDS ORDERED: PROMETHAZINE 25 MG/ML, 1ML IM PRN (17:30)
[2020-03-29] MEDS ORDERED: OXYcodone IR 5MG TABLET PO PRN (17:30)
--- NOTE | 2020-03-29 17:35 | NUR ---
PT MOVED TO TRAUMA 4 FOR BP. BP WAS 109/57 AFTER MOVE AND CENTRAL POSTPONED PER DR. COOPER AT BEDSIDE. BP NOW 94/55. REPORT TO GERALD MAI.
[2020-03-29] MEDS ORDERED: NALOXONE 0.4 MG/ML, 1ML ONE (17:38)
--- NOTE | 2020-03-29 17:41 | NUR ---
Assumed care, pt given 0.4mg of narcan IV
--- NOTE | 2020-03-29 17:42 | NUR ---
Pt awake and pt after narcan speaking full sentances and yawning.
--- NOTE | 2020-03-29 17:45 | NUR ---
Pt awake and yelling that he is freezing. Pt very agtitated and sneezing. Pt demanding to be warm. Pt has 3 warm blankets on him with the bear paw heater.
[2020-03-29] MEDS ORDERED: NALOXONE 0.4 MG/ML, 1ML IVPush ONE (18:00)
[2020-03-29 18:17] LABS: FREE T4 (FREE THYROXINE) 0.84 ng/dL (0.76-1.46)
--- NOTE | 2020-03-29 18:28 | NUR ---
rEPORT CALLED TO ILANA MAI
[2020-03-29 21:00] VITALS: BP 94/53
[2020-03-29] MEDS: ALBUTEROL HFA 90 MCG/SPRAY INH SCH (22:00)
[2020-03-29 22:05] LABS: MICROSCOPIC NOT IND
[2020-03-29] MEDS ORDERED: CLON1TAB PO (22:06)
[2020-03-29 22:11] LABS: AMPHETAMINE SCREEN, URINE Negative (Negative); BARBITURATE SCREEN, URINE Negative (Negative); BENZODIAZEPINE SCREEN, URINE Negative (Negative); CANNABINOID SCREEN, URINE Negative (Negative); COCAINE SCREEN, URINE Negative (Negative); METHADONE SCREEN, URINE Positive (Negative); OPIATE SCREEN, URINE Positive (Negative)
[2020-03-29] MEDS: HEPARIN 5,000 UNITS/ML, 1ML SQ SCH (22:18)
[2020-03-29] MEDS ORDERED: advair INH (22:22)
[2020-03-30 01:14] VITALS: BP 119/73
[2020-03-30 04:36] LABS: ALBUMIN 2.5 g/dL (3.4-5.0); ANION GAP 7 mmol/L (5-15); CALCIUM 7.6 mg/dL (8.5-10.1); CHLORIDE 116 mmol/L (98-107)
[2020-03-30 04:40] LABS: ALANINE AMINOTRANSFERASE 17 U/L (12-78); ALKALINE PHOSPHATASE 91 U/L (45-117); BILIRUBIN,TOTAL 0.3 mg/dL (0.2-1.0); CHOL/HDL RATIO 2.4; CHOLESTEROL, TOTAL 87 mg/dL (140-239); HDL CHOL % 43 % (26-37); HDL CHOLESTEROL (DIRECT) 37 mg/dL (40-60); LDL CHOLESTEROL,CALCULATED 34 mg/dL (54-169); LDL/HDL RATIO 0.9 (0.5-3.0); TOTAL PROTEIN 5.6 g/dL (6.4-8.2); TRIGLYCERIDES 81 mg/dL (50-200); VLDL CHOLESTEROL 16 mg/dL (0-25)
[2020-03-30 05:06] LABS: BASOPHILS # (AUTO) 0.02 x10^3/uL (0-0.1); BASOPHILS % (AUTO) 1 % (0-1); EOSINOPHILS # (AUTO) 0.27 x10^3/uL (0-0.4); EOSINOPHILS % (AUTO) 7 % (1-7); LYMPHOCYTES # (AUTO) 1.38 x10^3/uL (1-3.4); LYMPHOCYTES % (AUTO) 35 % (22-44); MD SCAN; MEAN CORPUSCULAR HEMOGLOBIN 33.4 pg (27.5-34.5); MEAN CORPUSCULAR HGB CONC 33.7 g/dL (33.2-36.2); MEAN CORPUSCULAR VOLUME 99.1 fL (81-97); MONOCYTES # (AUTO) 0.41 x10^3/uL (0.2-0.8); MONOCYTES % (AUTO) 10 % (2-9); NEUTROPHILS # (AUTO) 1.87 x10^3/uL (1.8-6.8); NEUTROPHILS % (AUTO) 47 % (42-75); PLATELET COUNT 96 x10^3/uL (130-400); RED BLOOD COUNT 3.51 x10^6/uL (4.38-5.82); RED CELL DISTRIBUTION WIDTH 14.1 % (9.4-14.8)
[2020-03-30] MEDS: ALBUTEROL HFA 90 MCG/SPRAY INH SCH ×2 (06:00→11:31)
[2020-03-30] MEDS: HEPARIN 5,000 UNITS/ML, 1ML SQ SCH (06:22)
[2020-03-30] MEDS: SODIUM CHLORIDE 0.9% 1,000 ML IV SCH (06:24)
[2020-03-30 07:03] VITALS: BP 117/73
[2020-03-30] MEDS ORDERED: METHADONE 10 MG TABLET PO SCH ×2 (09:00→10:00)
[2020-03-30] MEDS ORDERED: FLUTICASONE/VILANTEROL 200-25MCG/INH INH SCH (09:00)
[2020-03-30] MEDS ORDERED: NICOTINE 7 MG/24 HR PATCH.TD24 TD SCH (12:00)
[2020-03-30 14:44] VITALS: BP 158/89
[2020-03-30] MEDS ORDERED: LORazepam 0.5MG TABLET PO PRN (16:00)
== END 2020-03-30 17:06 | disposition left against medical advice (07) | DRG 469 ==
LOC: ED 17:59 → MERGE 18:46 → 5SO 18:46
PROVIDERS: ADMIT Internal Medicine; ATTEND Internal Medicine
DX: N17.0 Acute kidney failure with tubular necrosis (principal); G93.40 Encephalopathy, unspecified; I25.2 Old myocardial infarction; I11.0 Hypertensive heart disease with heart failure; I50.9 Heart failure, unspecified; F17.200 Nicotine dependence, unspecified, uncomplicated; Z86.73 Personal history of transient ischemic attack (TIA), and cerebral infarction without residual deficits; E87.0 Hyperosmolality and hypernatremia; E86.0 Dehydration; D69.6 Thrombocytopenia, unspecified; Z91.83 Wandering in diseases classified elsewhere; Z53.29 Procedure and treatment not carried out because of patient's decision for other reasons
CPT/HCPCS: 36415; 36600; 71045; 80053; 80061; 80307; 81003; 82803; 83036; 83605; 83735; 83880; 84100; 84439; 84443; 84484; 85025; 85610; 93005; G0378; J1644; J2310; J7030